=== PATIENT | female | born 1985 | race Caucasian/White ===

== ENCOUNTER → 2016-12-30 | Outpatient (REF) | payer OTHER ==
[~2016-12-30] MED LIST: ACET50TA PO; IBUP80TA PO; OXYC1TAB23 PO; VITAPRTA PO
== END ==
LOC: M LAB REF 13:23
PROVIDERS: ATTEND Physician Assistant Medical
DX: N89.8 Other specified noninflammatory disorders of vagina (principal)

== ENCOUNTER 2017-01-04 09:35 | Emergency (ER) | payer OTHER ==
[2017-01-04] MEDS ORDERED: ONDANSETRON 4 MG ORAL DISINTEGRATING TAB (S0181) As Ordered ONE (11:05)
--- NOTE | 2017-01-04 11:09 | EDDOCDS ---
Nurse's Notes [facility] Name: Loida Bhagat Age: 31 yrs Sex: Female : 1985 Arrival Date: 01/04/2017 Time: 09:35 Bed Triage 3 Private MD: NO PRIMARY PHYSICIAN, . Diagnosis: Nausea and vomiting;Diarrhea, unspecified Presentation: 01/04 09:52 Presenting complaint: Patient states: Pt presents with vomiting an diarrhea onset last dls night general body aches and chills. Adult Sepsis Screening: The patient does not have new or worsening altered mentation. Patient's respiratory rate is less than 22. Systolic blood pressure is greater than 100. Patient has a qSOFA score of 0- Negative Sepsis Screen. Suicide/Homicide risk assessment- the patient denies having any suicidal and/or homicidal ideations and does not present with any other emotional, behavioral or mental health complaints. 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 Transition of care: patient was not received from another setting of care. 09:52 Acuity: GATITO Level 4 dls 09:52 Method Of Arrival: Walkin/Carried/Asstd dls Triage Assessment: 09:53 General: Appears uncomfortable, Behavior is cooperative. Pain: Pain currently is 6 out dls of 10 on a pain scale. HIV screening NA for this visit Offered previously. 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 Nexium 20 mg Oral cpDR once daily 2. tylenol as needed - PMHx: Depression; GERD; Hiatal Hernia; Scoliosis; - PSHx: Cholecystectomy; Tubal ligation; - Social history: Smoking status: Patient uses tobacco products, light tobacco smoker. No barriers to communication noted, The patient speaks fluent Nicaraguan. - : The pt / caregiver states he / she is not on anticoagulants. Home medication list is obtained from the patient. - Exposure Risk Screening:: None identified. Vital Signs: 09:38 BP 117 / 71; Pulse 99; Resp 18; Temp 97.3(O); Pulse Ox 99% on R/A; Weight 68.04 kg (R); ct3 Height 5 ft. 10 in. (177.80 cm) (R); Pain 6/10; 09:38 Body Mass Index 21.52 (68.04 kg, 177.80 cm) ct3 Vitals: 09:38 Log In Time: January 04, 2017 at 09:35. ct3 ED Course: 09:37 Patient visited by Tory Dudley PCA. ct3 09:37 Patient moved to Waiting ct3 09:38 NO PRIMARY PHYSICIAN, . is Private Physician. ct3 09:39 Patient moved to Pre RCE ct3 09:53 Triage Initiated dls 10:00 Patient moved to Triage 3 kcs 10:42 Conner Antunez PA-C is PHCP. cc10 10:42 Jerome Carlos MD is Attending Physician. cc10 10:42 Patient visited by Conner Antunez PA-C. cc10 10:42 Patient visited by Conner Antunez PA-C. cc10 10:53 [facility] is Referral Physician. cc10 Administered Medications: 11:09 Drug: Ondansetron ODT 4 mg [ondansetron 4 mg disintegrating tablet (1 tabs)] Route: PO; kcs Order Results: There are currently no results for this order. Outcome: 10:53 Discharge ordered by Provider. cc10 11:09 Patient left the ED. kcs Signatures: Heidi Aaron RN RN kcs Scott, Debra, RN RN [facility] Tory Dudley PCA DIRECTOR FIELD SERVICES ct3 Conner Antunez PA-C PA-C cc10 MTDD
--- NOTE | 2017-01-04 11:09 | EDDOCDS ---
Physician Documentation [facility] Name: Loida Bhagat Age: 31 yrs Sex: Female : 1985 Arrival Date: 01/04/2017 Time: 09:35 Bed Triage 3 Private MD: NO PRIMARY PHYSICIAN, . Disposition: 01/04/17 10:53 Discharged to Home/Self Care. Impression: Nausea and vomiting, Diarrhea, unspecified. - Condition is Stable. - Discharge Instructions: Viral Gastroenteritis. - Prescriptions for ZOFRAN ODT 4 mg - dissolve 1 tablet by ORAL route 4 times per day As needed do not chew, do not swallow whole; 10 tablet. - Medication Reconciliation, Work Release Form - 3 day form. - Follow up: [facility]; When: Call to arrange an appointment; Reason: Recheck today's complaints, Continuance of care, To establish care. - Problem is new. - Symptoms are unchanged. Historical: - Allergies: SULFA (SULFONAMIDES) (Hives); - Home Meds: 1. Nexium 20 mg Oral cpDR once daily 2. tylenol as needed - PMHx: Depression; GERD; Hiatal Hernia; Scoliosis; - PSHx: Cholecystectomy; Tubal ligation; - Social history: Smoking status: Patient uses tobacco products, light tobacco smoker. No barriers to communication noted, The patient speaks fluent Bengali. - : The pt / caregiver states he / she is not on anticoagulants. Home medication list is obtained from the patient. - Exposure Risk Screening:: None identified. 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 10 in. (177.80 cm) (R); Pain 6/10; 09:38 Body Mass Index 21.52 (68.04 kg, 177.80 cm) ct3 MDM: 10:52 Ondansetron ODT Oral Disintegrating Tablet 4 mg PO once ordered. cc10 11:03 Financial registration complete. lg Administered Medications: 11:09 Drug: Ondansetron ODT 4 mg [ondansetron 4 mg disintegrating tablet (1 tabs)] Route: PO; kcs Signatures: Sleeman, Heidi, AVRIL RN Terra Brito RN RN dls Zefreino Harmon, Mart Reg lg Conner Antunez, CESAR PAJosieC cc10 MTDD
--- NOTE | 2017-01-06 12:11 | EDDOCDS ---
Physician Documentation [facility] Name: Loida Bhagat Age: 31 yrs Sex: Female : 1985 Arrival Date: 01/04/2017 Time: 09:35 Bed Triage 3 Private MD: NO PRIMARY PHYSICIAN, . Disposition: 01/04/17 10:53 Discharged to Home/Self Care. Impression: Nausea and vomiting, Diarrhea, unspecified. - Condition is Stable. - Discharge Instructions: Viral Gastroenteritis. - Prescriptions for ZOFRAN ODT 4 mg - dissolve 1 tablet by ORAL route 4 times per day As needed do not chew, do not swallow whole; 10 tablet. - Medication Reconciliation, Work Release Form - 3 day form. - Follow up: [facility]; When: Call to arrange an appointment; Reason: Recheck today's complaints, Continuance of care, To establish care. - Problem is new. - Symptoms are unchanged. Historical: - Allergies: SULFA (SULFONAMIDES) (Hives); - Home Meds: 1. Nexium 20 mg Oral cpDR once daily 2. tylenol as needed - PMHx: Depression; GERD; Hiatal Hernia; Scoliosis; - PSHx: Cholecystectomy; Tubal ligation; - Social history: Smoking status: Patient uses tobacco products, light tobacco smoker. No barriers to communication noted, The patient speaks fluent Turkish. - Family history: Not pertinent. - : The pt / caregiver states he / she is not on anticoagulants. Home medication list is obtained from the patient. - Exposure Risk Screening:: None identified. 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 10 in. (177.80 cm) (R); Pain 6/10; 09:38 Body Mass Index 21.52 (68.04 kg, 177.80 cm) ct3 MDM: 10:52 Ondansetron ODT Oral Disintegrating Tablet 4 mg PO once ordered. cc10 11:03 Financial registration complete. lg 13:16 [facility] Payment Agreement was scanned into [employer] and attached to record. lg 02/14 10:40 T-Sheet-- Draft Copy was scanned into [employer] and attached to record. gb Administered Medications: 01/04 11:09 Drug: Ondansetron ODT 4 mg [ondansetron 4 mg disintegrating tablet (1 tabs)] Route: PO; [facility] Signatures: Heidi Aaron RN RN Terra Brito RN RN dls Alyse Ramirez, Reg Reg gb Zeferino Harmon, Reg Reg lg Conner Antunez PA-C PAShalini cc10 The chart was reviewed and I authenticate all verbal orders and agree with the evaluation and treatment provided.Attachments: 13:16 [facility] Payment Agreement lg 01/05 10:40 T-Sheet-- Draft Copy gb Chart Complete MTDD
--- NOTE | 2017-01-06 12:11 | EDDOCDS ---
Nurse's Notes [facility] Name: Loida Bhagat Age: 31 yrs Sex: Female : 1985 Arrival Date: 01/04/2017 Time: 09:35 Bed Triage 3 Private MD: NO PRIMARY PHYSICIAN, . Diagnosis: Nausea and vomiting;Diarrhea, unspecified Presentation: 01/04 09:52 Presenting complaint: Patient states: Pt presents with vomiting an diarrhea onset last dls night general body aches and chills. Adult Sepsis Screening: The patient does not have new or worsening altered mentation. Patient's respiratory rate is less than 22. Systolic blood pressure is greater than 100. Patient has a qSOFA score of 0- Negative Sepsis Screen. Suicide/Homicide risk assessment- the patient denies having any suicidal and/or homicidal ideations and does not present with any other emotional, behavioral or mental health complaints. Status: Patient is not a social services director or dependent. Transition of care: patient was not received from another setting of care. 09:52 Acuity: GATITO Level 4 dls 09:52 Method Of Arrival: Walkin/Carried/Asstd dls Triage Assessment: 09:53 General: Appears uncomfortable, Behavior is cooperative. Pain: Pain currently is 6 out dls of 10 on a pain scale. HIV screening NA for this visit Offered previously. 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 Nexium 20 mg Oral cpDR once daily 2. tylenol as needed - PMHx: Depression; GERD; Hiatal Hernia; Scoliosis; - PSHx: Cholecystectomy; Tubal ligation; - Social history: Smoking status: Patient uses tobacco products, light tobacco smoker. No barriers to communication noted, The patient speaks fluent Indian. - Family history: Not pertinent. - : The pt / caregiver states he / she is not on anticoagulants. Home medication list is obtained from the patient. - Exposure Risk Screening:: None identified. Screenin:05 Screening information is obtained from prior medical records. Fall risk: No risks kcs identified. Assistance ADL's: requires no assistance with activities of daily living. Abuse/DV Screen: The patient / caregiver reports he/she is: not in a situation that causes fear, pain or injury. Nutritional screening: No deficits noted. Advance Directives: Currently, there is no health care proxy. home support is adequate. Assessment: 11:05 General: Appears comfortable, well developed, well nourished, well groomed, Behavior is kcs cooperative, pleasant. Pain: Denies pain. Neurological: Level of Consciousness is awake, alert. Respiratory: Airway is patent Respiratory effort is even, unlabored, Respiratory pattern is regular, symmetrical. Derm: Skin is intact, is healthy with good turgor, Skin is dry, Skin is normal. Vital Signs: 09:38 BP 117 / 71; Pulse 99; Resp 18; Temp 97.3(O); Pulse Ox 99% on R/A; Weight 68.04 kg (R); ct3 Height 5 ft. 10 in. (177.80 cm) (R); Pain 6/10; 09:38 Body Mass Index 21.52 (68.04 kg, 177.80 cm) ct3 Vitals: 09:38 Log In Time: January 04, 2017 at 09:35. ct3 ED Course: 09:37 Patient visited by Tory Dudley PCA. ct3 09:37 Patient moved to Waiting ct3 09:38 NO PRIMARY PHYSICIAN, . is Private Physician. ct3 09:39 Patient moved to Pre RCE ct3 09:53 Triage Initiated dls 10:00 Patient moved to Triage 3 kcs 10:42 Conner Antunez PA-C is PHCP. cc10 10:42 Jerome Carlos MD is Attending Physician. cc10 10:42 Patient visited by Conner Antunez PA-C. cc10 10:42 Patient visited by Conner Antunez PA-C. cc10 10:53 [facility] is Referral Physician. cc10 11:05 The patient / caregiver is instructed regarding the plan of care and ED course. kcs 11:05 No IV's were initiated during this patient's visit. No procedures done that require kcs assistance. 13:16 [facility] Payment Agreement was scanned into [employer] and attached to record. lg 01/05 10:40 T-Sheet-- Draft Copy was scanned into [employer] and attached to record. gb Administered Medications: 01/04 11:09 Drug: Ondansetron ODT 4 mg [ondansetron 4 mg disintegrating tablet (1 tabs)] Route: PO; kcs Order Results: There are currently no results for this order. Outcome: 10:53 Discharge ordered by Provider. cc10 11:05 Discharge Assessment: Patient awake, alert and oriented x 3. No cognitive and/or kcs functional deficits noted. Patient verbalized understanding of disposition instructions. Patient awake and alert. patient administered narcotics - no. The following High Risk Discharge criteria are identified: None. Discharged to home ambulatory. Condition: stable. Discharge instructions given to patient, Instructed on discharge instructions, follow up and referral plans. medication usage, Demonstrated understanding of instructions, medications, Pt was receptive of discharge instructions/ teaching. Work note provided to patient. No special radiology studies were completed. Property sent home with patient. 11:09 Patient left the ED. kcs Signatures: Heidi Aaron RN RN Terra Brito RN RN dls James, Alyse, Reg Reg gb Ganter, LoriLee, Reg Reg lg Dudley, Tory, FURNACE COMBUSTION TESTER FURNACE COMBUSTION TESTER ct3 Conner Antunez, PA-C PA-C cc10 Chart Complete MTDD
--- NOTE | 2017-01-06 12:11 | EDDOCDS ---
Physician Documentation [facility] Name: Loida Bhagat Age: 31 yrs Sex: Female : 1985 Arrival Date: 01/04/2017 Time: 09:35 Bed Triage 3 Private MD: NO PRIMARY PHYSICIAN, . Disposition: 01/04/17 10:53 Discharged to Home/Self Care. Impression: Nausea and vomiting, Diarrhea, unspecified. - Condition is Stable. - Discharge Instructions: Viral Gastroenteritis. - Prescriptions for ZOFRAN ODT 4 mg - dissolve 1 tablet by ORAL route 4 times per day As needed do not chew, do not swallow whole; 10 tablet. - Medication Reconciliation, Work Release Form - 3 day form. - Follow up: [facility]; When: Call to arrange an appointment; Reason: Recheck today's complaints, Continuance of care, To establish care. - Problem is new. - Symptoms are unchanged. Historical: - Allergies: SULFA (SULFONAMIDES) (Hives); - Home Meds: 1. Nexium 20 mg Oral cpDR once daily 2. tylenol as needed - PMHx: Depression; GERD; Hiatal Hernia; Scoliosis; - PSHx: Cholecystectomy; Tubal ligation; - Social history: Smoking status: Patient uses tobacco products, light tobacco smoker. No barriers to communication noted, The patient speaks fluent Wolof. - Family history: Not pertinent. - : The pt / caregiver states he / she is not on anticoagulants. Home medication list is obtained from the patient. - Exposure Risk Screening:: None identified. 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 10 in. (177.80 cm) (R); Pain 6/10; 09:38 Body Mass Index 21.52 (68.04 kg, 177.80 cm) ct3 MDM: 10:52 Ondansetron ODT Oral Disintegrating Tablet 4 mg PO once ordered. cc10 11:03 Financial registration complete. lg 13:16 [facility] Payment Agreement was scanned into [employer] and attached to record. lg 02/14 10:40 T-Sheet-- Draft Copy was scanned into [employer] and attached to record. gb Administered Medications: 01/04 11:09 Drug: Ondansetron ODT 4 mg [ondansetron 4 mg disintegrating tablet (1 tabs)] Route: PO; [facility] Signatures: Heidi Aaron RN RN Terra Brito RN RN dls Alyse Ramirez, Reg Reg gb Zeferino Harmon, Reg Reg lg Conner Antunez PA-C PAShalini cc10 The chart was reviewed and I authenticate all verbal orders and agree with the evaluation and treatment provided.Attachments: 13:16 [facility] Payment Agreement lg 01/05 10:40 T-Sheet-- Draft Copy gb Chart Complete MTDD
== END 2017-01-04 11:09 | disposition home or self-care (01) ==
LOC: M ED 09:35
DX: R11.2 Nausea with vomiting, unspecified (principal); R19.7 Diarrhea, unspecified; K21.9 Gastro-esophageal reflux disease without esophagitis; F32.9 Major depressive disorder, single episode, unspecified; M41.9 Scoliosis, unspecified; K44.9 Diaphragmatic hernia without obstruction or gangrene; Z79.899 Other long term (current) drug therapy; Z88.2 Allergy status to sulfonamides; F17.210 Nicotine dependence, cigarettes, uncomplicated

== ENCOUNTER 2017-02-13 01:12 | Emergency (ER) | payer OTHER ==
[~2017-02-13] VITALS: Ht 160 cm; Wt 78.0 kg
[2017-02-13] MEDS ORDERED: NS 1,000 ML IV ONE (02:15)
[2017-02-13 02:46] LABS: BASO % 0.3 % (0.0-1.0); EOS # 0.3 K/mm3 (0.0-0.50); EOS % 3.3 % (0.0-3.0); LARGE UNSTAINED CELL # 0.2 K/mm3 (0.0-0.4); LARGE UNSTAINED CELL % 1.8 % (0.0-4.0); LYMPH # 3.5 K/mm3 (1.5-4.5); LYMPH % 37.4 % (24.0-44.0); MEAN CORPUSCULAR HEMOGLOBIN 27.8 pg (27.0-33.0); MEAN CORPUSCULAR HGB CONC 31.8 g/dl (32.0-36.5); MEAN CORPUSCULAR VOLUME 87.4 fl (80.0-96.0); MONO # 0.4 K/mm3 (0.0-0.8); MONO % 4.6 % (0.0-5.0); NEUTROPHILS # 4.7 K/mm3 (1.8-7.7); NEUTROPHILS % 52.5 % (36.0-66.0); PLATELET COUNT, AUTOMATED 297 k/mm3 (150-450)
[2017-02-13 02:47] LABS: CONTROL LINE HCG INT CTR LINE PRESENT
[2017-02-13 02:56] LABS: ANION GAP 6 MEQ/L (8-16); BLOOD UREA NITROGEN 11 MG/DL (7-18); CALCIUM LEVEL 9.1 MG/DL (8.5-10.1); CARBON DIOXIDE LEVEL 28 MEQ/L (21-32); CHLORIDE LEVEL 106 MEQ/L (98-107); CREATININE FOR GFR 0.61 MG/DL (0.55-1.02); GLOMERULAR FILTRATION RATE > 60.0 (>60); GLUCOSE, FASTING 96 MG/DL (70-105); POTASSIUM SERUM 3.5 MEQ/L (3.5-5.1); SODIUM LEVEL 140 MEQ/L (136-145)
[2017-02-13 05:06] VITALS: BP 105/66
--- NOTE | 2017-02-13 08:36 | REP ---
Clinical: Chest pain. Technique: PA and lateral. Comparison: 10/02/2013. Findings: Stable scoliosis. Cardiac silhouette is normal. Lung north are clear without focal consolidation, effusion, or pneumothorax. Impression: Stable scoliosis. No focal consolidation. Signed by Silverio Stafford MD 02/13/2017 08:27 A
--- NOTE | 2017-02-13 19:45 | ECGEPIP ---
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
== END 2017-02-13 05:08 | disposition home or self-care (01) ==
LOC: M ED 03:06
DX: F41.1 Generalized anxiety disorder (principal)

== ENCOUNTER → 2017-03-15 | Outpatient (CLI) | payer OTHER ==
--- NOTE | 2017-03-16 04:34 | REP ---
Clinical: Pelvic pain . Technique: Transabdominal pelvic ultrasound followed by transvaginal examination for better evaluation of the endometrium and adnexa with color Doppler evaluation of the ovaries. Findings: Bladder is unremarkable and measures 4.7 x 5.5 x 2.3 cm . Normal anteverted uterus measures 9.6 x 4.9 x 5.5 cm . The endometrial complex measures 18 mm thickness and should be correlated with menstrual cycle. No discrete uterine or endometrial abnormalities are appreciated. Bilateral ovaries are normal in appearance and vascularity without evidence for torsion. Right ovary measures 1.9 x 1.8 x 1.9 cm ; R I = within normal limits . Left ovary measures 2.0 x 1.5 x 1.9 cm ; R I = within normal limits . Trace pelvic fluid nonspecific. No adnexal mass lesion. Impression: 1. Relatively normal pelvic ultrasound. No obvious abnormality noted. Minimally thickened endometrial complex without lesions likely related to menstrual cycle. Signed by Silverio Stafford MD 03/16/2017 04:25 A
--- NOTE | 2017-03-16 05:14 | REP ---
Clinical: Abdominal pain. Technique: Real time self scale ultrasound examination using curved array transducer. Findings: Liver, spleen and pancreas are normal in contour, size, echogenicity and overall appearance. No focal hepatic, splenic or pancreatic lesions are identified. Spleen measures 10 cm in maximal length. The patient is status post cholecystectomy. No biliary ductal dilatation is appreciated and the common bile duct measures 3.4 mm diameter. Bilateral kidneys are normal in reniform shape and echogenicity without hydronephrosis, nephrolithiasis, cystic or mass lesion. Right kidney measures 10.9 x 5.7 x 3.8 cm; left kidney measures 10.2 x 5.2 x 5.2 cm. Abdominal aorta is normal in appearance and caliber measuring 1.5 cm maximal diameter. No ascites. Impression: Evidence of prior cholecystectomy. Otherwise normal complete abdominal ultrasound. Signed by Silverio Stafford MD 03/16/2017 05:05 A
== END ==
LOC: M RAD 08:53
PROVIDERS: ATTEND Physician Assistant Medical
DX: R10.84 Generalized abdominal pain (principal); Z98.890 Other specified postprocedural states

== ENCOUNTER 2017-08-01 20:32 | Emergency (ER) | payer MEDICAID, OTHER ==
[~2017-08-01] VITALS: Ht 160 cm; Wt 83.2 kg
[2017-08-01 20:33] VITALS: BP 117/61
[2017-08-01] MEDS ORDERED: ZOLO50TA PO (21:02)
[2017-08-01] MEDS ORDERED: NEXI20GR PO (21:02)
--- NOTE | 2017-08-02 07:41 | REP ---
Clinical: Pain. Technique: AP, lateral, bilateral oblique views right foot . Findings: The osseous structures and joint spaces are intact and normal. There is no evidence for acute fracture or dislocation. Surrounding soft tissues are unremarkable. No subcutaneous emphysema or radiodense foreign body. Impression: Age appropriate examination . No acute fracture or dislocation. Signed by Silverio Stafford MD 08/02/2017 07:33 A
== END 2017-08-01 23:42 | disposition home or self-care (01) ==
LOC: M ED 20:32
DX: S90.31XA Contusion of right foot, initial encounter (principal); Z72.0 Tobacco use; W10.8XXA Fall (on) (from) other stairs and steps, initial encounter; Y92.099 Unspecified place in other non-institutional residence as the place of occurrence of the external cause; Y93.01 Activity, walking, marching and hiking; Y99.9 Unspecified external cause status

== ENCOUNTER 2017-11-10 11:52 | Emergency (ER) | payer MEDICAID, OTHER ==
[~2017-11-10] VITALS: Ht 160 cm; Wt 88.2 kg
[2017-11-10 11:52] VITALS: BP 133/80
[~2017-11-10 11:52] MED LIST changes: +NEXI20GR PO; +ZOLO50TA PO
[2017-11-10] MEDS ORDERED: PENI500T PO (12:21)
[2017-11-10] MEDS ORDERED: NORCOTAB PO (12:21)
== END 2017-11-10 13:09 | disposition home or self-care (01) ==
LOC: M ED 11:52
DX: K02.9 Dental caries, unspecified (principal); F17.210 Nicotine dependence, cigarettes, uncomplicated; F33.9 Major depressive disorder, recurrent, unspecified; F41.9 Anxiety disorder, unspecified; Z79.899 Other long term (current) drug therapy; Z88.2 Allergy status to sulfonamides

== ENCOUNTER → 2017-12-29 | Outpatient (REF) | payer OTHER ==
[2017-12-29 14:46] LABS: INFLUENZA A AMPLIFICATION POSITIVE (NEGATIVE); INFLUENZA B AMPLIFICATION NEGATIVE (NEGATIVE); RSV AMPLIFICATION NEGATIVE (NEGATIVE)
== END ==
LOC: M LAB REF 13:34
DX: J11.1 Influenza due to unidentified influenza virus with other respiratory manifestations (principal); J02.9 Acute pharyngitis, unspecified
CPT/HCPCS: 87502

== ENCOUNTER 2018-01-02 21:18 | Emergency (ER) | payer OTHER ==
[2018-01-02] MEDS: NORCO 5/325MG TABLET (BULK FOR ED) PO (22:45)
[2018-01-02] MEDS: PENICILLIN V POTASSIUM 500 MG TAB PO (22:45)
== END 2018-01-02 22:55 | disposition home or self-care (01) ==
LOC: M ED 21:18
DX: K04.7 Periapical abscess without sinus (principal); K02.9 Dental caries, unspecified; F17.210 Nicotine dependence, cigarettes, uncomplicated; Z88.2 Allergy status to sulfonamides; Z79.899 Other long term (current) drug therapy
CPT/HCPCS: 99282

== ENCOUNTER 2019-04-20 20:34 | Emergency (ER) | payer OTHER ==
[~2019-04-20] VITALS: Ht 160 cm; Wt 93.2 kg
[~2019-04-20 20:34] MED LIST changes: -ACET50TA PO; +HYDR-3715 PO; +MAPA500T2 PO; +PENI500T PO; +PROT20TA11 PO; +TOPA1TAB PO; +TOPA50TA8 PO
[2019-04-20] MEDS ORDERED: diphenhydrAMINE INJ 50MG/ML VIAL (J1200) IV ONE (22:00)
[2019-04-20] MEDS ORDERED: ONDANSETRON 4MG/2ML VIAL (J2405) IV ONE (22:00)
[2019-04-20] MEDS ORDERED: KETOROLAC 30 MG/ML VIAL (J1885) IV ONE (22:00)
[2019-04-20] MEDS ORDERED: NS 1,000 ML IV ONE (22:00)
[2019-04-20 22:27] LABS: BASO % 0.3 % (0.0-1.0); EOS # 0.3 10^3/uL (0.0-0.50); EOS % 2.4 % (0.0-3.0); HEMATOCRIT 36.2 % (36.0-47.0); HEMOGLOBIN 11.6 g/dl (12.0-15.5); LYMPH # 4.3 10^3/uL (1.5-4.5); LYMPH % 35.2 % (24.0-44.0); MEAN CORPUSCULAR HEMOGLOBIN 28.1 pg (27.0-33.0); MEAN CORPUSCULAR VOLUME 87.7 fl (80.0-96.0); MONO # 0.6 10^3/uL (0.0-0.8); MONO % 5.1 % (0.0-5.0); NEUTROPHILS # 6.8 10^3/uL (1.8-7.7); NEUTROPHILS % 56.5 % (36.0-66.0); PLATELET COUNT, AUTOMATED 346 10^3/uL (150-450); RED BLOOD COUNT 4.13 10^6/uL (4.00-5.40); WHITE BLOOD COUNT 12.1 10^3/uL (4.0-10.0)
[2019-04-20 22:53] LABS: BLOOD UREA NITROGEN 9 MG/DL (7-18); CALCIUM LEVEL 8.9 MG/DL (8.5-10.1); CARBON DIOXIDE LEVEL 26 MEQ/L (21-32); CHLORIDE LEVEL 109 MEQ/L (98-107); CK-MB VALUE MASS < 1.0 NG/ML (<3.6); CPK CREATINE PHOSPHOKINASE 95 U/L (26-192); CREATININE FOR GFR 0.55 MG/DL (0.55-1.30); FREE T4 0.94 NG/DL (0.76-1.46); GLOMERULAR FILTRATION RATE > 60.0 (>60); GLUCOSE, FASTING 85 MG/DL (70-100); MB/CK RELATIVE INDEX 1.05 (< OR =4); SODIUM LEVEL 141 MEQ/L (136-145); TROPONIN I < 0.02 NG/ML (< 0.10)
--- NOTE | 2019-04-20 23:48 | REPVR ---
EXAM: CT Head Without Contrast EXAM DATE/TIME: 04/20/2019 9:56 PM CLINICAL HISTORY: 33 years old, female; Pain; Headache not specified; Additional info: Severe headache TECHNIQUE: Imaging protocol: Axial computed tomography images of the head without contrast. Radiation optimization: All CT scans at this facility use at least one of these dose optimization techniques: automated exposure control; mA and/or kV adjustment per patient size (includes targeted exams where dose is matched to clinical indication); or iterative reconstruction. COMPARISON: No relevant prior studies available. FINDINGS: Brain: No CT evidence of acute intracranial hemorrhage or acute territorial infarction. No significant mass effect or midline shift. Basal cisterns patent. Ventricles: Normal in size and configuration. Bones/joints: No acute osseous abnormality. Sinuses: Grossly unremarkable. Mastoid air cells: Grossly unremarkable. Soft tissues: Grossly unremarkable. IMPRESSION: 1. No CT evidence of acute intracranial pathology. 2. Additional findings, as above. Electronically signed by: Lupillo Mina On 04/20/2019 23:47:19 PM
--- NOTE | 2019-04-20 23:53 | REPVR ---
EXAM: CT Cervical Spine Without Contrast EXAM DATE/TIME: 04/20/2019 9:56 PM CLINICAL HISTORY: 33 years old, female; Signs and symptoms; Other: Dizzy; Additional info: Syncope TECHNIQUE: Imaging protocol: Axial computed tomography images of the cervical spine without contrast. Coronal and sagittal reformatted images were created and reviewed. Radiation optimization: All CT scans at this facility use at least one of these dose optimization techniques: automated exposure control; mA and/or kV adjustment per patient size (includes targeted exams where dose is matched to clinical indication); or iterative reconstruction. COMPARISON: No relevant prior studies available. FINDINGS: Vertebrae: Reversal of the normal cervical lordosis. Dextroscoliosis. Alignment anatomic. No CT evidence of acute fracture, dislocation or subluxation. Vertebral body heights maintained. Discs/Spinal canal/Neural foramina: Mild multilevel spondylosis. No significant spinal canal or neural foraminal stenosis. Soft tissues: Grossly unremarkable. Lungs: Grossly unremarkable. IMPRESSION: 1. No CT evidence of acute cervical spine traumatic injury. 2. Additional findings, as above. Electronically signed by: Lupillo Mina On 04/20/2019 23:52:55 PM
[2019-04-21] MEDS ORDERED: CYCL5TAB PO (00:20)
[2019-04-21 00:29] VITALS: BP 110/53
--- NOTE | 2019-04-21 06:08 | ECGEPIP ---
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
== END 2019-04-21 00:40 | disposition home or self-care (01) ==
LOC: M ED 20:34
DX: R51 Headache (principal); M62.838 Other muscle spasm; K21.9 Gastro-esophageal reflux disease without esophagitis; F41.9 Anxiety disorder, unspecified; F32.9 Major depressive disorder, single episode, unspecified; Z88.2 Allergy status to sulfonamides; F17.200 Nicotine dependence, unspecified, uncomplicated; Z82.49 Family history of ischemic heart disease and other diseases of the circulatory system; Z79.899 Other long term (current) drug therapy
CPT/HCPCS: 70450; 72125; 80048; 81001; 82550; 82553; 83735; 84439; 84443; 84702; 85025; 93005; 96374; 96375; 99284; J1200; J1885; J2405

== ENCOUNTER → 2019-06-12 | Outpatient (CLI) | payer OTHER ==
[~2019-06-12] MED LIST changes: +CYCL5TAB PO
--- NOTE | 2019-06-12 12:13 | REP ---
LEFT WRIST, FOUR VIEWS: There is no evidence of an acute fracture, dislocation or intrinsic bone disease. IMPRESSION: No fracture or dislocation. Electronically Signed by Dick Fajardo MD 06/13/2019 03:38 P
== END ==
LOC: M RAD 10:41
PROVIDERS: ATTEND Physician Assistant Medical
DX: M25.532 Pain in left wrist (principal)

== ENCOUNTER → 2019-08-14 | Outpatient (CLI) | payer OTHER ==
--- NOTE | 2019-08-15 01:36 | REP ---
Clinical: Trauma. Fall. Technique: AP, lateral, bilateral oblique and coned-down views of the lumbosacral spine. Findings: Levoconvex scoliosis noted. Alignment is otherwise maintained. No acute fracture / compression injury or acute subluxation. No obvious spondylolysis or spondylolisthesis. Impression: Chronic levoconvex scoliosis. No acute fracture / compression injury or subluxation. Electronically Signed by Silverio Stafford MD 08/15/2019 01:28 A
== END ==
LOC: M RAD 18:41
PROVIDERS: ATTEND Physician Assistant Medical
DX: M41.86 Other forms of scoliosis, lumbar region (principal)

== ENCOUNTER → 2020-02-08 | Outpatient (REF) | payer BC, OTHER ==
[2020-02-08 20:36] LABS: AMORPHOUS SEDIMENT SMALL (NEGATIVE); APPEARANCE, URINE CLOUDY (CLEAR); BACTERIA, URINE AUTO NEGATIVE (NEGATIVE); BILIRUBIN, URINE AUTO NEGATIVE (NEGATIVE); BLOOD, URINE BLOOD NEGATIVE (NEGATIVE); COLOR, URINE YELLOW (YELLOW); GLUCOSE, URINE (UA) AUTO NEGATIVE (NEGATIVE); KETONE, URINE AUTO NEGATIVE (NEGATIVE); LEUKOCYTE ESTERASE, URINE AUTO NEGATIVE (NEGATIVE); MUCUS, URINE SMALL (NEGATIVE); NITRITE, URINE AUTO NEGATIVE (NEGATIVE); PROTEIN, URINE AUTO NEGATIVE (NEGATIVE); RBC, URINE AUTO 2 /HPF (0-3); SPECIFIC GRAVITY URINE AUTO 1.023 (1.002-1.035); SQUAMOUS EPITHELIAL CELL UR AU 5 /HPF (0-6); UROBILINOGEN, URINE AUTO 0.2 mg/dL (0.0-2.0); WBC, URINE AUTO 1 /HPF (0-3)
== END ==
LOC: M LAB REF 19:18
PROVIDERS: ATTEND Physician Assistant
DX: N91.2 Amenorrhea, unspecified (principal)

== ENCOUNTER → 2021-02-14 | Outpatient (REF) | payer BC, OTHER ==
[2021-02-14 21:10] LABS: APPEARANCE, URINE CLEAR (CLEAR); BACTERIA, URINE AUTO NEGATIVE (NEGATIVE); BILIRUBIN, URINE AUTO NEGATIVE (NEGATIVE); BLOOD, URINE BLOOD 1+ (NEGATIVE); COLOR, URINE YELLOW (YELLOW); GLUCOSE, URINE (UA) AUTO NEGATIVE (NEGATIVE); KETONE, URINE AUTO NEGATIVE (NEGATIVE); LEUKOCYTE ESTERASE, URINE AUTO NEGATIVE (NEGATIVE); NITRITE, URINE AUTO NEGATIVE (NEGATIVE); PROTEIN, URINE AUTO NEGATIVE (NEGATIVE); RBC, URINE AUTO 1 /HPF (0-3); SPECIFIC GRAVITY URINE AUTO 1.008 (1.002-1.035); SQUAMOUS EPITHELIAL CELL UR AU 1 /HPF (0-6); UROBILINOGEN, URINE AUTO 0.2 mg/dL (0.0-2.0); WBC, URINE AUTO 1 /HPF (0-3)
== END ==
LOC: M LAB 20:55
PROVIDERS: ATTEND Physician Assistant
DX: N39.0 Urinary tract infection, site not specified (principal)

== ENCOUNTER → 2021-02-26 | Outpatient (CLI) | payer SELFPAY ==
[~2021-02-26] MED LIST changes: +PROP10TA56 PO
== END ==
LOC: M LABSMTC 13:57
PROVIDERS: ATTEND Pediatrics
DX: Z20.822 Contact with and (suspected) exposure to COVID-19 (principal)

== ENCOUNTER 2021-03-01 22:52 | Emergency (ER) | payer BC, OTHER ==
[~2021-03-01] VITALS: Ht 160 cm; Wt 86.4 kg
[~2021-03-01 22:52] MED LIST changes: -PROP10TA56 PO
[2021-03-02 00:50] LABS: HEMATOCRIT 36.9 % (36.0-47.0); HEMOGLOBIN 12.1 g/dl (12.0-15.5); MEAN CORPUSCULAR HEMOGLOBIN 29.3 pg (27.0-33.0); MEAN CORPUSCULAR HGB CONC 32.8 g/dl (32.0-36.5); MEAN CORPUSCULAR VOLUME 89.3 fl (80.0-96.0); PLATELET COUNT, AUTOMATED 302 10^3/uL (150-450); RED BLOOD COUNT 4.13 10^6/uL (4.00-5.40)
[2021-03-02 02:19] LABS: ALBUMIN 3.7 GM/DL (3.2-5.2); ALT/SGPT 16 U/L (12-78); BILIRUBIN,TOTAL 0.2 MG/DL (0.2-1.0); BLOOD UREA NITROGEN 12 MG/DL (7-18); CALCIUM LEVEL 9.6 MG/DL (8.5-10.1); CARBON DIOXIDE LEVEL 23 MEQ/L (21-32); CHLORIDE LEVEL 112 MEQ/L (98-107); CK-MB VALUE MASS < 1.0 NG/ML (<3.6); CPK CREATINE PHOSPHOKINASE 119 U/L (26-192); CREATININE FOR GFR 0.64 MG/DL (0.55-1.30); GLOMERULAR FILTRATION RATE > 60.0 (>60); GLUCOSE, FASTING 104 MG/DL (70-100); MB/CK RELATIVE INDEX 0.84 (< OR =4); POTASSIUM SERUM 4.1 MEQ/L (3.5-5.1); SODIUM LEVEL 143 MEQ/L (136-145); TOTAL PROTEIN 7.2 GM/DL (6.4-8.2); TROPONIN I < 0.02 NG/ML (< 0.10)
--- NOTE | 2021-03-02 02:24 | REPVR ---
PROCEDURE INFORMATION: Exam: XR Chest Exam date and time: 03/02/2021 1:52 AM Age: 35 years old Clinical indication: Other: Chest pain TECHNIQUE: Imaging protocol: XR of the chest. Views: 1 view. COMPARISON: CR Chest, 2 view PA, Lat 02/13/2017 3:34 AM FINDINGS: Lungs: Unremarkable. No consolidation. Pleural spaces: Unremarkable. No pleural effusion. No pneumothorax. Heart/Mediastinum: Unremarkable. No cardiomegaly. Bones/joints: Dextroscoliosis of the thoracic spine. IMPRESSION: No acute infiltrate. Electronically signed by: Daina Harrison On 03/02/2021 02:24:23 AM
[2021-03-02] MEDS ORDERED: PROP10TA56 PO (03:42)
[2021-03-02 03:56] VITALS: BP 129/67
--- NOTE | 2021-03-02 15:58 | ECGEPIP ---
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
== END 2021-03-02 04:02 | disposition home or self-care (01) ==
LOC: M ED 22:52
DX: R07.89 Other chest pain (principal); F33.9 Major depressive disorder, recurrent, unspecified; F41.9 Anxiety disorder, unspecified; K21.9 Gastro-esophageal reflux disease without esophagitis; Z79.899 Other long term (current) drug therapy; Z88.1 Allergy status to other antibiotic agents; Z88.2 Allergy status to sulfonamides; F17.210 Nicotine dependence, cigarettes, uncomplicated

== ENCOUNTER → 2021-11-26 | Outpatient (REF) | payer OTHER ==
[~2021-11-26] MED LIST changes: +PROP10TA56 PO
[2021-11-26 18:43] LABS: ALBUMIN 3.9 GM/DL (3.2-5.2); ALT/SGPT 21 U/L (12-78); BILIRUBIN,TOTAL < 0.1 MG/DL (0.2-1.0); BLOOD UREA NITROGEN 14 MG/DL (7-18); CALCIUM LEVEL 8.9 MG/DL (8.5-10.1); CARBON DIOXIDE LEVEL 28 MEQ/L (21-32); CHLORIDE LEVEL 107 MEQ/L (98-107); CREATININE FOR GFR 0.69 MG/DL (0.55-1.30); FREE T4 0.91 NG/DL (0.76-1.46); GLOMERULAR FILTRATION RATE > 60.0 (>60); GLUCOSE, FASTING 90 MG/DL (70-100); SODIUM LEVEL 139 MEQ/L (136-145); TOTAL PROTEIN 7.5 GM/DL (6.4-8.2)
== END ==
LOC: M SFHCADAM 15:57
PROVIDERS: ATTEND Family Medicine
DX: F41.8 Other specified anxiety disorders (principal)

== ENCOUNTER → 2021-12-10 | Outpatient (REF) | payer OTHER | LOC: M SFHCWAGY 13:30 | PROVIDERS: ATTEND Specialist | DX: Z12.4 Encounter for screening for malignant neoplasm of cervix (principal); B37.3 Candidiasis of vulva and vagina ==

== ENCOUNTER → 2022-02-04 | Outpatient (CLI) | payer OTHER ==
[~2022-02-04] MED LIST changes: +LANS30CA93; +SERT50TA29
== END ==
LOC: M WHC 11:47
PROVIDERS: ATTEND Physician Assistant
DX: R10.2 Pelvic and perineal pain (principal)

== ENCOUNTER 2022-02-05 22:46 | Emergency (ER) | payer OTHER ==
[~2022-02-05] VITALS: Ht 160 cm; Wt 90.9 kg
[~2022-02-05 22:46] MED LIST changes: -LANS30CA93; -SERT50TA29
[2022-02-05 22:47] VITALS: BP 139/78
[2022-02-05] MEDS ORDERED: LANS30CA93 (22:53)
[2022-02-05] MEDS ORDERED: SERT50TA29 (22:53)
[2022-02-05 23:10] LABS: BASO % 0.3 % (0.0-1.0); EOS # 0.2 10^3/uL (0.0-0.5); EOS % 1.6 % (0.0-3.0); HEMATOCRIT 37.3 % (36.0-47.0); HEMOGLOBIN 12.6 g/dl (12.0-15.5); LYMPH # 3.7 10^3/uL (1.5-5.0); MEAN CORPUSCULAR HEMOGLOBIN 29.4 pg (27.0-33.0); MEAN CORPUSCULAR HGB CONC 33.8 g/dl (32.0-36.5); MEAN CORPUSCULAR VOLUME 87.1 fl (80.0-96.0); MONO # 0.8 10^3/uL (0.0-0.8); MONO % 5.7 % (2.0-8.0); NEUTROPHILS # 9.8 10^3/uL (1.5-8.5); NEUTROPHILS % 67.1 % (36.0-66.0); PLATELET COUNT, AUTOMATED 307 10^3/uL (150-450); RED BLOOD COUNT 4.28 10^6/uL (4.00-5.40); WHITE BLOOD COUNT 14.6 10^3/uL (4.0-10.0)
[2022-02-05 23:36] LABS: HCG, SERUM QUALITATIVE NEGATIVE (NEGATIVE)
[2022-02-05 23:37] LABS: BLOOD UREA NITROGEN 14 MG/DL (7-18); CALCIUM LEVEL 8.9 MG/DL (8.5-10.1); CARBON DIOXIDE LEVEL 25 MEQ/L (21-32); CHLORIDE LEVEL 109 MEQ/L (98-107); CREATININE FOR GFR 0.55 MG/DL (0.55-1.30); GLOMERULAR FILTRATION RATE > 60.0 (>60); GLUCOSE, FASTING 85 MG/DL (70-100); POTASSIUM SERUM 3.8 MEQ/L (3.5-5.1); SODIUM LEVEL 137 MEQ/L (136-145)
[2022-02-05 23:39] LABS: CK-MB VALUE MASS < 1.0 NG/ML (<3.6); CPK CREATINE PHOSPHOKINASE 71 U/L (26-192); MB/CK RELATIVE INDEX 1.41 (< OR =4)
== END 2022-02-05 23:59 | disposition left against medical advice (07) ==
LOC: M ED 22:46
DX: Z53.29 Procedure and treatment not carried out because of patient's decision for other reasons (principal)

== ENCOUNTER → 2022-02-18 | Outpatient (CLI) | payer OTHER ==
[~2022-02-18] MED LIST changes: +LANS30CA93; +SERT50TA29
== END ==
LOC: M RAD 16:19
PROVIDERS: ATTEND Family Medicine
DX: R05.9 Cough, unspecified (principal)

== ENCOUNTER → 2022-05-17 | Outpatient (CLI) | payer OTHER ==
[~2022-05-17] MED LIST changes: -LANS30CA93; +LANS30CA93 PO; +OMEP1CAP73 PO; -SERT50TA29; +SERT50TA29 PO
== END ==
LOC: M LABSMTC 10:30
PROVIDERS: ATTEND Anesthesiology
DX: Z01.812 Encounter for preprocedural laboratory examination (principal); Z11.52 Encounter for screening for COVID-19

== ENCOUNTER 2022-05-20 11:27 | Day surgery (SDC) | payer OTHER ==
[~2022-05-20] VITALS: Ht 160 cm; Wt 76.1 kg
[~2022-05-20 11:27] MED LIST changes: +BUPIVACAINE HCL 0.25% 10ML VIAL As Ordered ONE; +ceFAZolin SOD 2 GM in IV 1 EA IV ONE
[2022-05-20] MEDS ORDERED: LR 1,000 ML IV SCH ×3 (11:40→15:20)
[2022-05-20 11:58] LABS: HEMATOCRIT 38.7 % (36.0-47.0); HEMOGLOBIN 12.9 g/dl (12.0-15.5); MEAN CORPUSCULAR HEMOGLOBIN 30.4 pg (27.0-33.0); MEAN CORPUSCULAR HGB CONC 33.3 g/dl (32.0-36.5); MEAN CORPUSCULAR VOLUME 91.1 fl (80.0-96.0); PLATELET COUNT, AUTOMATED 266 10^3/uL (150-450); RED BLOOD COUNT 4.25 10^6/uL (4.00-5.40); WHITE BLOOD COUNT 8.2 10^3/uL (4.0-10.0)
[2022-05-20] MEDS ORDERED: KETOROLAC 60MG 2ML VIAL As Ordered ONE (12:47)
[2022-05-20] MEDS ORDERED: dexameTHASONE 4 MG/ML 1ML VIAL (J1100 PER 1MG) As Ordered ONE (12:47)
[2022-05-20] MEDS ORDERED: propofoL 200 MG/20 ML VIAL As Ordered ONE (12:47)
[2022-05-20] MEDS ORDERED: MIDAZOLAM INJ 2MG/2ML VIAL (J2250 PER 1MG) As Ordered ONE (12:47)
[2022-05-20] MEDS ORDERED: fentaNYL 100 MCG/2 ML INJECTION As Ordered ONE (12:47)
[2022-05-20] MEDS ORDERED: LIDOCAINE 2% INJ 100 MG/5 ML SYRINGE As Ordered ONE (12:47)
[2022-05-20] MEDS ORDERED: ONDANSETRON 4MG 2ML VIAL As Ordered ONE (12:47)
[2022-05-20] MEDS ORDERED: HYDROmorphone HCL 2MG/ML 1ML VIAL As Ordered ONE (12:47)
[2022-05-20] MEDS ORDERED: SUGAMMADEX SODIUM 500 MG/5 ML VIAL (BRIDION) As Ordered ONE (12:47)
[2022-05-20] MEDS ORDERED: ROCURONIUM BROMIDE 50 MG/5 ML VIAL As Ordered ONE (12:47)
[2022-05-20] MEDS ORDERED: METOCLOPRAMIDE INJ 10MG/2ML VIAL (J2765 PER 1) IV PRN (14:10)
[2022-05-20] MEDS ORDERED: fentaNYL 100 MCG/2 ML INJECTION IV PRN (14:10)
[2022-05-20] MEDS ORDERED: ONDANSETRON 4MG 2ML VIAL IV PRN (14:10)
[2022-05-20] MEDS ORDERED: oxyCODONE 5MG TAB PO PRN (14:10)
[2022-05-20] MEDS ORDERED: HYDROMORPHONE HCL 0.5 MG/ 0.5 ML SYRINGE (J1170 PER 1) IV PRN (14:10)
[2022-05-20] MEDS ORDERED: OXYC1TAB23 PO (14:16)
[2022-05-20] MEDS ORDERED: IBUP-1022 PO (14:16)
[2022-05-20] MEDS: MEPERIDINE INJ 25 MG/ML VIAL (J2175) IV PRN ×2 (14:27→14:32)
[2022-05-20] MEDS ORDERED: PERCOCET 5MG/325MG TAB PO PRN (15:20)
[2022-05-20 16:20] VITALS: BP 102/55
== END 2022-05-20 16:40 | disposition home or self-care (01) ==
LOC: M SDC 11:27
PROVIDERS: ATTEND Specialist
DX: N84.0 Polyp of corpus uteri (principal); N92.0 Excessive and frequent menstruation with regular cycle; M41.9 Scoliosis, unspecified; F41.9 Anxiety disorder, unspecified; F32.A Depression, unspecified; G56.00 Carpal tunnel syndrome, unspecified upper limb; F17.210 Nicotine dependence, cigarettes, uncomplicated; Z88.2 Allergy status to sulfonamides
CPT/HCPCS: 36415; 58571; 85027; 86850; 86900; 86901; 88307; J0690; J1100; J1170; J1885; J2175; J2250; J2405; J3010; S2900

== ENCOUNTER → 2023-01-26 | Outpatient (REF) | payer OTHER ==
[~2023-01-26] MED LIST changes: -BUPIVACAINE HCL 0.25% 10ML VIAL As Ordered ONE; +IBUP-1022 PO; -ceFAZolin SOD 2 GM in IV 1 EA IV ONE
== END ==
LOC: M SFHCADAM 15:27
PROVIDERS: ATTEND Family Medicine
DX: Z53.9 Procedure and treatment not carried out, unspecified reason (principal)

== ENCOUNTER → 2023-12-10 | Outpatient (CLI) | payer OTHER, SELFPAY ==
[~2023-12-10] MED LIST changes: +ESTR1TAB PO; +LANS15CA PO; +NAPR-837 PO; +SERT-141 PO
== END ==
LOC: M RAD 13:39
PROVIDERS: ATTEND Physician Assistant
DX: R22.1 Localized swelling, mass and lump, neck (principal)

== ENCOUNTER 2024-03-03 07:45 | Emergency (ER) | payer BC, OTHER, SELFPAY ==
[~2024-03-03] VITALS: Ht 160 cm; Wt 96.2 kg
[2024-03-03 07:46] VITALS: BP 146/77; TEMP 97.4; O2SAT 98
[2024-03-03] MEDS ORDERED: BENZ200C70 PO (11:32)
== END 2024-03-03 11:41 | disposition home or self-care (01) ==
LOC: M ED 07:45
DX: J20.9 Acute bronchitis, unspecified (principal); Z79.899 Other long term (current) drug therapy; Z88.2 Allergy status to sulfonamides

== ENCOUNTER 2024-08-25 21:45 | Emergency (ER) | payer BC, MEDICAID ==
[~2024-08-25] VITALS: Ht 160 cm; Wt 99.0 kg
[~2024-08-25 21:45] MED LIST changes: +BENZ200C70 PO
[2024-08-25 21:48] VITALS: TEMP 97.1
[2024-08-26] MEDS ORDERED: CEPH500C PO (01:07)
[2024-08-26] MEDS ORDERED: IBUP-1022 PO (01:08)
[2024-08-26] MEDS: CEPHALEXIN 500 MG CAP PO ONE (01:09)
[2024-08-26 01:41] VITALS: BP 140/75; O2SAT 99
== END 2024-08-26 01:42 | disposition home or self-care (01) ==
LOC: M ED 21:45
DX: S50.12XA Contusion of left forearm, initial encounter (principal); S70.02XA Contusion of left hip, initial encounter; N39.0 Urinary tract infection, site not specified; W07.XXXA Fall from chair, initial encounter; K21.9 Gastro-esophageal reflux disease without esophagitis; Y92.89 Other specified places as the place of occurrence of the external cause; Y93.89 Activity, other specified; Y99.9 Unspecified external cause status; Z79.1 Long term (current) use of non-steroidal anti-inflammatories (NSAID); Z79.2 Long term (current) use of antibiotics; Z79.899 Other long term (current) drug therapy

== ENCOUNTER 2024-09-20 21:22 | Emergency (ER) | payer SELFPAY ==
[~2024-09-20] VITALS: Ht 160 cm; Wt 98.2 kg
[~2024-09-20 21:22] MED LIST changes: +CEPH500C PO
[2024-09-20 21:25] VITALS: BP 135/83; TEMP 97.9; O2SAT 100
== END 2024-09-21 00:43 | disposition left against medical advice (07) ==
LOC: M ED 21:22
DX: Z53.21 Procedure and treatment not carried out due to patient leaving prior to being seen by health care provider (principal)

== ENCOUNTER 2024-10-03 17:50 | Emergency (ER) | payer SELFPAY ==
[~2024-10-03] VITALS: Ht 160 cm; Wt 99.4 kg
[~2024-10-03 17:50] MED LIST changes: -CYCL5TAB PO; +CYCL5TAB4 PO
[2024-10-03 17:54] VITALS: TEMP 97.2
[2024-10-03] MEDS ORDERED: ISOVUE-370 76% 100ML VIAL As Ordered ONE (18:44)
[2024-10-03 18:53] LABS: HEMATOCRIT 41.8 % (36.0-47.0); HEMOGLOBIN 13.9 g/dl (12.0-15.5); MEAN CORPUSCULAR HEMOGLOBIN 30.9 pg (27.0-33.0); MEAN CORPUSCULAR HGB CONC 33.3 g/dl (32.0-36.5); MEAN CORPUSCULAR VOLUME 92.9 fl (80.0-96.0); PLATELET COUNT, AUTOMATED 359 10^3/uL (150-450); WHITE BLOOD COUNT 11.1 10^3/uL (4.0-10.0)
[2024-10-03 19:00] VITALS: BP 113/56; O2SAT 100
[2024-10-03] MEDS: KETOROLAC 30 MG/ML 1ML VIAL IV ONE (19:50)
== END 2024-10-03 21:44 | disposition home or self-care (01) ==
LOC: M ED 17:50
DX: G43.809 Other migraine, not intractable, without status migrainosus (principal); K21.9 Gastro-esophageal reflux disease without esophagitis; F41.9 Anxiety disorder, unspecified; F32.A Depression, unspecified; Z88.2 Allergy status to sulfonamides; Z79.1 Long term (current) use of non-steroidal anti-inflammatories (NSAID); Z79.899 Other long term (current) drug therapy
CPT/HCPCS: 70450; 70496; 70498; 70551; 80047; 85027; 93041; 96374; 99285; J1885; Q9967

== ENCOUNTER → 2025-01-18 | Outpatient (CLI) | payer OTHER ==
[2025-01-18 08:18] LABS: BASO % 0.4 % (0.0-1.0); EOS # 0.2 10^3/uL (0.0-0.5); EOS % 1.7 % (0.0-3.0); HEMATOCRIT 41.8 % (36.0-47.0); HEMOGLOBIN 14.2 g/dl (12.0-15.5); LYMPH # 2.5 10^3/uL (1.5-5.0); LYMPH % 27.5 % (24.0-44.0); MEAN CORPUSCULAR HEMOGLOBIN 31.3 pg (27.0-33.0); MEAN CORPUSCULAR VOLUME 92.3 fl (80.0-96.0); MONO # 0.5 10^3/uL (0.0-0.8); MONO % 5.9 % (2.0-8.0); NEUTROPHILS # 5.9 10^3/uL (1.5-8.5); NEUTROPHILS % 64.3 % (36.0-66.0); PLATELET COUNT, AUTOMATED 300 10^3/uL (150-450); RED BLOOD COUNT 4.53 10^6/uL (4.00-5.40); WHITE BLOOD COUNT 9.2 10^3/uL (4.0-10.0)
[2025-01-18 08:51] LABS: ALBUMIN 3.7 G/DL (3.2-5.2); ALKALINE PHOSPHATASE 78 U/L (35-104); ALT/SGPT 20 U/L (7.0-40); AST/SGOT 17 U/L (<34); BILIRUBIN,TOTAL 0.4 MG/DL (0.3-1.2); BLOOD UREA NITROGEN 8 MG/DL (9-23); CALCIUM LEVEL 9.2 MG/DL (8.5-10.1); CARBON DIOXIDE LEVEL 29 MMOL/L (20-31); CHLORIDE LEVEL 107 MMOL/L (98-107); CHOLESTEROL LEVEL 193 MG/DL (<200); CHOLESTEROL RISK RATIO 5.02 (<5); CREATININE FOR GFR 0.56 MG/DL (0.55-1.30); GLOMERULAR FILTRATION RATE > 60.0 (>60); GLUCOSE, FASTING 92 MG/DL (60-100); HDL CHOLESTEROL 38.4 MG/DL (>40); LDL CHOLESTEROL 122.6 MG/DL (<100); NON-HDL-C 154.6 MG/DL; POTASSIUM SERUM 4.3 MMOL/L (3.5-5.1); SODIUM LEVEL 140 MMOL/L (136-145); TOTAL PROTEIN 7.1 G/DL (5.7-8.2); TRIGLYCERIDES LEVEL 160 MG/DL (<150)
[2025-01-18 08:53] LABS: THYROID STIMULATING HORMONE 1.099 uIU/ML (0.55-4.78)
== END ==
LOC: M RAD 07:42
PROVIDERS: ATTEND Family Medicine
DX: Z00.00 Encounter for general adult medical examination without abnormal findings (principal); M25.552 Pain in left hip

== ENCOUNTER 2025-06-20 03:48 | Emergency (ER) | payer OTHER ==
[~2025-06-20] VITALS: Ht 160 cm; Wt 98.1 kg
[2025-06-20 05:30] LABS: BASO # 0.1 10^3/uL (0.0-0.2); BASO % 0.5 % (0.0-1.0); EOS # 0.3 10^3/uL (0.0-0.5); EOS % 3.1 % (0.0-3.0); LYMPH # 3.5 10^3/uL (1.5-5.0); LYMPH % 33.6 % (24.0-44.0); MONO # 0.7 10^3/uL (0.0-0.8); MONO % 6.9 % (2.0-8.0); NEUTROPHILS # 5.8 10^3/uL (1.5-8.5); NEUTROPHILS % 55.6 % (36.0-66.0); PLATELET COUNT, AUTOMATED 304 10^3/uL (150-450)
[2025-06-20 05:54] LABS: CALCIUM LEVEL 9.0 MG/DL (8.5-10.1); CARBON DIOXIDE LEVEL 25 MMOL/L (20-31); CHLORIDE LEVEL 106 MMOL/L (98-107); CK-MB VALUE MASS < 1.0 NG/ML (<3.6); CREATININE FOR GFR 0.57 MG/DL (0.55-1.30); GLOMERULAR FILTRATION RATE > 90.0 (>60); POTASSIUM SERUM 4.2 MMOL/L (3.5-5.1); SODIUM LEVEL 141 MMOL/L (136-145)
[2025-06-20 05:58] LABS: CPK CREATINE PHOSPHOKINASE 54 U/L (34-145)
[2025-06-20 07:16] LABS: CK-MB VALUE MASS < 1.0 NG/ML (<3.6); CPK CREATINE PHOSPHOKINASE 44 U/L (34-145)
[2025-06-20] MEDS ORDERED: ISOVUE-370 76% 100 ML VIAL As Ordered ONE (07:42)
[2025-06-20 08:05] LABS: ALT/SGPT 17.0 U/L (7.0-40); AST/SGOT 15.0 U/L (<34)
[2025-06-20 09:00] VITALS: BP 105/56; TEMP 98.4; O2SAT 96
== END 2025-06-20 09:08 | disposition home or self-care (01) ==
LOC: M ED 03:48
DX: R07.9 Chest pain, unspecified (principal); G47.30 Sleep apnea, unspecified; F41.9 Anxiety disorder, unspecified; F32.A Depression, unspecified; K21.9 Gastro-esophageal reflux disease without esophagitis; F17.200 Nicotine dependence, unspecified, uncomplicated; Z88.2 Allergy status to sulfonamides; Z88.6 Allergy status to analgesic agent; Z79.899 Other long term (current) drug therapy; Z90.49 Acquired absence of other specified parts of digestive tract
CPT/HCPCS: 36415; 71045; 71275; 80048; 80076; 82550; 82553; 83605; 84484; 85025; 87486; 87581; 87633; 87798; 93005; 93041; 94760; 99285; Q9967

== ENCOUNTER → 2025-08-05 | Outpatient (CLI) | payer OTHER ==
[~2025-08-05] MED LIST changes: -IBUP-1022 PO; +IBUP600T42 PO
== END ==
LOC: M SLEEP 20:00
PROVIDERS: ATTEND Physician Assistant
DX: R40.0 Somnolence (principal)

== ENCOUNTER → 2025-08-08 | Outpatient (CLI) | payer OTHER | LOC: M ADAMS 12:59 | PROVIDERS: ATTEND Family Medicine | DX: M54.2 Cervicalgia (principal); M47.812 Spondylosis without myelopathy or radiculopathy, cervical region; M25.78 Osteophyte, vertebrae ==

== ENCOUNTER → 2025-08-08 | Outpatient (REF) | payer OTHER ==
[2025-08-08 18:44] LABS: BASO # 0.1 10^3/uL (0.0-0.2); BASO % 0.5 % (0.0-1.0); EOS # 0.3 10^3/uL (0.0-0.5); EOS % 2.0 % (0.0-3.0); LYMPH # 4.2 10^3/uL (1.5-5.0); LYMPH % 33.7 % (24.0-44.0); MONO # 0.8 10^3/uL (0.0-0.8); MONO % 6.5 % (2.0-8.0); NEUTROPHILS # 7.1 10^3/uL (1.5-8.5); NEUTROPHILS % 57.0 % (36.0-66.0); PLATELET COUNT, AUTOMATED 360 10^3/uL (150-450)
[2025-08-08 18:49] LABS: ALT/SGPT 20 U/L (7.0-40); AST/SGOT 22 U/L (<34); CALCIUM LEVEL 9.5 MG/DL (8.5-10.1); CARBON DIOXIDE LEVEL 28 MMOL/L (20-31); CHLORIDE LEVEL 107 MMOL/L (98-107); CREATININE FOR GFR 0.59 MG/DL (0.55-1.30); FREE T4 1.09 NG/DL (0.89-1.76); GLOMERULAR FILTRATION RATE > 90.0 (>60); POTASSIUM SERUM 4.7 MMOL/L (3.5-5.1); SODIUM LEVEL 138 MMOL/L (136-145)
[2025-08-08 18:51] LABS: VITAMIN B12 LEVEL 334 PG/ML (211-911)
== END ==
LOC: M SFHCADAM 12:11
PROVIDERS: ATTEND Family Medicine
DX: R20.2 Paresthesia of skin (principal); R51.9 Headache, unspecified; R53.82 Chronic fatigue, unspecified

== ENCOUNTER 2025-10-27 18:27 | Emergency (ER) | payer OTHER ==
[~2025-10-27] VITALS: Ht 160 cm; Wt 86.7 kg
[~2025-10-27 18:27] MED LIST changes: +CETI-24 PO; +ESTR2TAB3 PO; +FLUO-365 PO; +HYDR-3363 PO; +MECL-86 PO; +SUMA100T2 PO; +TOPI-21 PO; +ZOLO100T PO
[2025-10-27] MEDS ORDERED: HYDR-3713 PO (19:08)
[2025-10-27 19:11] VITALS: BP 109/65; TEMP 96.6; O2SAT 98
[2025-10-27] MEDS: NORCO 5/325MG TABLET (HOME DOSE PACK) PO ONE (19:19)
== END 2025-10-27 19:25 | disposition home or self-care (01) ==
LOC: M ED 18:27
DX: K02.9 Dental caries, unspecified (principal); K08.89 Other specified disorders of teeth and supporting structures; R51.9 Headache, unspecified; K21.9 Gastro-esophageal reflux disease without esophagitis; F17.200 Nicotine dependence, unspecified, uncomplicated; Z88.2 Allergy status to sulfonamides; Z88.6 Allergy status to analgesic agent; Z79.1 Long term (current) use of non-steroidal anti-inflammatories (NSAID); Z79.2 Long term (current) use of antibiotics; Z79.899 Other long term (current) drug therapy

== ENCOUNTER 2025-11-01 20:06 | Emergency (ER) | payer OTHER ==
[~2025-11-01] VITALS: Ht 160 cm; Wt 87.2 kg
[~2025-11-01 20:06] MED LIST changes: +HYDR-3713 PO
[2025-11-01 20:17] VITALS: BP 113/69; TEMP 97.7; O2SAT 99
== END 2025-11-01 20:28 | disposition left against medical advice (07) ==
LOC: M ED 20:06 → EDBD 20:06 → M ED 20:28
DX: Z53.21 Procedure and treatment not carried out due to patient leaving prior to being seen by health care provider (principal)